=== PATIENT | female | born 1960 | race American Indian/Alaskan Native ===

== ENCOUNTER 2016-09-27 19:50 | Emergency (ER) | payer SELFPAY ==
[2016-09-28] MEDS ORDERED: NORCO 5/325 PO ONE (01:17)
[2016-09-28] MEDS ORDERED: FLEXERIL PO ONE (01:17)
[2016-09-28] MEDS ORDERED: MOTRIN PO ONE (01:18)
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
[2016-09-28 04:43] VITALS: BP 162/98
== END 2016-09-28 04:15 | disposition home or self-care (01) ==
LOC: ED 19:50
DX: S13.4XXA Sprain of ligaments of cervical spine, initial encounter (principal); S39.012A Strain of muscle, fascia and tendon of lower back, initial encounter; V49.59XA Passenger injured in collision with other motor vehicles in traffic accident, initial encounter; Y92.488 Other paved roadways as the place of occurrence of the external cause; Y93.89 Activity, other specified; Y99.8 Other external cause status
CPT/HCPCS: 72100; 72125